=== PATIENT | male | born 1970 | race Caucasian/White ===

== ENCOUNTER 2020-03-07 09:14 | Outpatient (CLI) | payer BC, SELFPAY ==
[2020-03-07 10:28] LABS: Alanine Aminotransferase 69 U/L (16-63); Albumin Level 3.7 g/dL (3.4-5.0); Alkaline Phosphatase 92 U/L (46-116); Anion Gap 7 mmol/L (8-16); Aspartate Amino Transferase 25 U/L (15-37); Bilirubin,Total 1.1 mg/dL (0.00-1.00); Blood Urea Nitrogen 16 mg/dL (7-18); Calcium 8.4 mg/dL (8.5-10.1); Carbon Dioxide 28 mmol/L (21-32); Chloride 105 mmol/L (98-108); Cholesterol 215 mg/dL (0-200); Estimated Glomerular Filt Rate > 60; Glucose 95 mg/dL (70-99); HDL Direct 43 mg/dL (40-60); LDL Cholesterol Calculated 127 mg/dL (<130); Osmolality Calculated 291 mOsm/kg (285-295); Potassium 3.7 mmol/L (3.5-5.1); Prostate Specific Antigen 3.6 ng/mL (< OR = 4.0); Sodium 140 mmol/L (136-145); Total Protein 7.1 g/dL (6.4-8.2); Triglycerides 226 mg/dL (0-150)
== END 2020-03-07 09:15 | disposition home or self-care (01) ==
PROVIDERS: PCP Internal Medicine; Visit Provider Internal Medicine
DX: E78.5 Hyperlipidemia, unspecified (principal); I10 Essential (primary) hypertension; Z12.5 Encounter for screening for malignant neoplasm of prostate
CPT/HCPCS: 36415; 80053; 80061; 84153; G0103

== ENCOUNTER 2021-01-06 09:48 | Outpatient (CLI) | payer BC, SELFPAY ==
[2021-01-06 10:06] LABS: Hematocrit 44.1 % (40.0-54.0); Hemoglobin 15.3 g/dL (14.0-18.0); Mean Corpuscular HGB Conc 34.7 g/dL (32.0-36.0); Mean Corpuscular Hemoglobin 30.7 pg (27.0-31.0); Mean Corpuscular Volume 88.4 fL (78.0-102.0); Mean Platelet Volume 11.9 fl (8.7-11.0); Platelet Count Result 197 K/mm3 (150-420); Red Blood Count 4.99 M/mm3 (4.70-6.10); Red Cell Distribution Width 13.4 % (11.6-14.4); White Blood Count 7.3 K/mm3 (4.8-10.8)
[2021-01-06 11:46] LABS: Alanine Aminotransferase 78 U/L (16-63); Albumin Level 3.8 g/dL (3.4-5.0); Alkaline Phosphatase 97 U/L (46-116); Anion Gap 11 mmol/L (8-16); Aspartate Amino Transferase 41 U/L (15-37); Bilirubin,Total 0.8 mg/dL (0.00-1.00); Blood Urea Nitrogen 13 mg/dL (7-18); Calcium 8.6 mg/dL (8.5-10.1); Carbon Dioxide 27 mmol/L (21-32); Chloride 103 mmol/L (98-108); Cholesterol 264 mg/dL (0-200); Estimated Glomerular Filt Rate > 60; Glucose 109 mg/dL (70-99); HDL Direct 45 mg/dL (40-60); LDL Cholesterol Calculated 171 mg/dL (<130); Osmolality Calculated 293 mOsm/kg (285-295); Potassium 3.6 mmol/L (3.5-5.1); Prostate Specific Antigen 3.9 ng/mL (< OR = 4.0); Sodium 141 mmol/L (136-145); Triglycerides 239 mg/dL (0-150)
[2021-01-06 13:02] LABS: Hemoglobin A1C 6.2 % (<5.7)
[2021-01-08 17:32] LABS: H pylori, Urea Breath NOT DETECTED (NOT DETECTED)
== END 2021-01-06 09:49 | disposition home or self-care (01) ==
PROVIDERS: PCP Family Medicine; Visit Provider Family Medicine
DX: E78.5 Hyperlipidemia, unspecified (principal); I10 Essential (primary) hypertension; R35.1 Nocturia; M10.9 Gout, unspecified; K21.9 Gastro-esophageal reflux disease without esophagitis; R73.09 Other abnormal glucose; Z12.5 Encounter for screening for malignant neoplasm of prostate
CPT/HCPCS: 36415; 80053; 80061; 83013; 83036; 84153; 84550; 85027; G0103

== ENCOUNTER 2021-01-15 07:52 | Outpatient (CLI) | payer BC, SELFPAY ==
--- NOTE | ~2021-01-15 | US_ITS ---
US abdomen limited DATE: 01/15/2021 08:12 INDICATION: Elevated liver enzymes TECHNIQUE: Real-time imaging of liver, pancreas, gallbladder COMPARISON: None FINDINGS: The pancreas is partially obscured by bowel gas and not optimally evaluated as result. No hepatic space-occupying mass lesion is evident. Normal hepatopedal portal venous flow direction. No gallstones or gallbladder wall thickening. Negative sonographic Silva's sign. The common bile marcelo t measures 3.8 mm, normal. IMPRESSION: Limited visualization of the pancreas; otherwise unremarkable examination Reviewed, dictated and finalized at [facility]. Reviewed, dictated and finalized at [facility]. IMPRESSION: Limited visualization of the pancreas; otherwise unremarkable exami nation
== END 2021-01-15 07:53 | disposition home or self-care (01) ==
LOC: CHSIMG 07:53
PROVIDERS: PCP Family Medicine; Visit Provider Family Medicine
DX: E78.5 Hyperlipidemia, unspecified (principal); R74.01 Elevation of levels of liver transaminase levels; R73.03 Prediabetes; R73.09 Other abnormal glucose
CPT/HCPCS: 76705